=== PATIENT | female | born 1990 | race Caucasian/White ===

== ENCOUNTER 2019-12-02 11:09 | Emergency (ER) | payer SELFPAY ==
[2019-12-02 11:18] VITALS: BP 136/81; PULSE 90; RESP 18; TEMP 36.8; O2SAT 99
--- NOTE | 2019-12-02 11:55 | ED.GENADULT ---
HPI - General Adult General Chief complaint: Unspecified Stated complaint: Poss Hemmroids/pain Time Seen by Provider: 12/02/19 11:55 Source: patient Mode of arrival: ambulatory Limitations: no limitations History of Present Illness HPI narrative: Anusha Solis is a 29 yo female who comes with area that is painful to have bowel movements - on L cheek - started on Thursday Related Data Allergies Allergy/AdvReac Type Severity Reaction Status Date / Time No Known Drug Allergies Allergy Verified 03/18/12 11:17 Review of Systems Review of Systems: Narrative: CONSTITUTIONAL: Denies fever, chills, sweats. EYES: Denies visual changes, redness, discharge. ENT: Denies rhinorrhea, congestion, sore throat, otalgia. CARDIOVASCULAR: Denies chest pain, palpitations, edema. RESPIRATORY: Denies dyspnea, wheezing, cough GASTROINTESTINAL: Denies abdominal pain, nausea, vomiting, diarrhea. GENITOURINARY: Denies dysuria, hematuria, abnormal discharge SKIN: Denies rash or itching. Painful area near her rectum on left buttock NEUROLOGIC: Denies numbness, or focal weakness. PSYCHIATRIC: Denies anxiety or depression. [facility] Family History Family History Other No acute medical problems Social History Social History (Updated 12/02/19 @ 12:17 by Valentina Krueger CNP) Smoking status: Never smoker Alcohol intake: current Comments At time of signature, I agree with nursing past medical, surgical, social and family history. There is no relevant family history pertinent to the presenting complaint. Exam Narrative: Exam Narrative: GENERAL: This is a well-nourished, well-developed patient, in mild distress. HEAD: normocephalic, atraumatic. EYES: Sclera clear/white. Vision is grossly intact. EARS: External ears normal, Hearing grossly intact. NOSE: External nose normal without nasal discharge, nares without redness, no rhinorrhea. THROAT: Mucous membranes moist, NECK: Neck supple, CARDIOVASCULAR: Regular rate and rhythm without murmurs, gallops, or rubs. RESPIRATORY: Clear to auscultation. Breath sounds equal bilaterally. No wheezes, rales, or rhonchi. GASTROINTESTINAL: Abdomen soft, SKIN: warm, intact with no suspicious lesions or rash, good texture and turgor. Large deep indurated area within 1 cm of lower area of anus -no fluctuance or external erythema, very painful and tender NEURO: awake, alert, and oriented to person, place and time. There were no obvious focal neurologic abnormalities. Steady gait EXTREMITIES: Normal range of motion. BACK: Nontender without deformity Course Course Emergency Course: Attempted needle aspiration of rectal abscess, blood but no infection. Started on Bactrim and Keflex, sitz baths twice a day, [place] 7.5 325 every 4 hours, [place] Follow-up with general surgeon Vital Signs Vital signs: Vital Signs Temperature 98.3 F 12/02/19 11:18 Pulse Rate 90 12/02/19 11:18 Respiratory Rate 18 12/02/19 11:18 Blood Pressure 136/81 12/02/19 11:18 Pulse Oximetry 99 12/02/19 11:18 Temperature 98.3 F 12/02/19 11:18 Pulse Rate 90 12/02/19 11:18 Respiratory Rate 18 12/02/19 11:18 Blood Pressure 136/81 12/02/19 11:18 Pulse Oximetry 99 12/02/19 11:18 Medical Decision Making Differential Diagnosis Differential Diagnosis: Rectal abscess versus rectal mass Vital Signs Vital Signs: Vital Signs Temperature 98.3 F 12/02/19 11:18 Pulse Rate 90 12/02/19 11:18 Respiratory Rate 18 12/02/19 11:18 Blood Pressure 136/81 12/02/19 11:18 Pulse Oximetry 99 12/02/19 11:18 Temperature 98.3 F 12/02/19 11:18 Pulse Rate 90 12/02/19 11:18 Respiratory Rate 18 12/02/19 11:18 Blood Pressure 136/81 12/02/19 11:18 Pulse Oximetry 99 12/02/19 11:18 Discharge Plan Discharge Clinical Impression: Abscess of anal or rectal region Patient Disposition: Home, Self-Care Condition: Stable Ins
== END 2019-12-02 12:38 | disposition home or self-care (01) ==
PROVIDERS: Emergency Provider Nurse Practitioner
DX: K61.2 Anorectal abscess (principal)
CPT/HCPCS: 99203; G0463